=== PATIENT | female | born 1985 | race Two or more races ===

== ENCOUNTER 2022-04-21 17:32 | Emergency (ER) | payer MEDICAID, OTHER ==
[~2022-04-21] VITALS: Ht 160 cm; Wt 73.0 kg
[2022-04-21 17:56] VITALS: BP 124/79
== END 2022-04-21 18:55 | disposition home or self-care (01) ==
LOC: ER 17:37
DX: O20.0 Threatened abortion (principal); Z3A.20 20 weeks gestation of pregnancy

== ENCOUNTER 2022-05-17 11:49 | Emergency (ER) | payer MEDICAID ==
[~2022-05-17] VITALS: Ht 160 cm; Wt 74.6 kg
[2022-05-17 12:41] VITALS: BP 121/75
== END 2022-05-17 15:50 | disposition left against medical advice (07) ==
LOC: ER 11:49
DX: R10.84 Generalized abdominal pain (principal)